=== PATIENT | female | born 1960 | race Caucasian/White ===

== ENCOUNTER → 2023-04-07 14:50 | Outpatient (REF) | payer BC, SELFPAY | LOC: HWRAD 14:50 | PROVIDERS: ATTENDING PHYSICIAN Internal Medicine | DX: I10 Essential (primary) hypertension (principal) | CPT/HCPCS: 76536 ==

== ENCOUNTER → 2024-04-02 06:03 | Outpatient (REF) | payer BC, SELFPAY ==
[2024-04-02 09:45] LABS: % Basophils 1.6 % (0-2); % Eosinophils 6.7 % (0-6); % Lymphocytes 22.5 % (20.5-51.1); % Monocytes 10.2 % (1.7-9.3); Absolute Basophils 0.1 10^3/uL (0-0.2); Absolute Eosinophils 0.3 10^3/uL (0-0.7); Absolute Lymphocytes 0.8 10^3/uL (1.2-3.4); Absolute Monocytes 0.4 10^3/uL (0.1-0.6); Absolute Neutrophils 2.2 10^3/uL (1.4-6.5); Hemoglobin 12.6 g/dL (12.0-16.0); Mean Corp Hgb Conc. 34.1 g/dL (33.0-37.0); Mean Corpuscular Volume 88.1 fL (81.0-99.0); Mean Platelet Volume 10.8 fL (7.4-10.4); Nucleated Red Blood Cells % 0 %; Platelet Count 239 10^3/uL (130-400); Red Cell Dist. Width 12.8 % (11.5-14.5); White Blood Cell Count 3.7 10^3/uL (4.8-10.8)
[2024-04-02 10:14] LABS: ALT (SGPT) 17 U/L (0-35); AST (SGOT) 26 U/L (14-36); Albumin 4.2 g/dl (3.5-5.0); Alkaline Phosphatase 61 U/L (38-126); Blood Urea Nitrogen 18 mg/dl (7-17); Calcium 9.1 mg/dl (8.4-10.2); Carbon Dioxide 28 mmol/L (22-30); Chloride 101 mmol/L (98-107); Glucose 91 mg/dl (70-99); HDL Cholesterol 89 mg/dl; LDL Cholesterol, Calculated 95 mg/dl; Potassium 3.5 mmol/L (3.5-5.1); Sodium 136 mmol/L (135-145); Total Bilirubin 0.9 mg/dl (0.2-1.3); Total Cholesterol 198 mg/dl (50-199); Total Protein 6.6 g/dl (6.3-8.2); Triglyceride 71 mg/dl (10-149); Very Low Density Lipoprotein 14 mg/dl (0-30); eGFR > 60.00
== END ==
LOC: HWLAB 06:03
PROVIDERS: ATTENDING PHYSICIAN Internal Medicine
DX: I10 Essential (primary) hypertension (principal)
CPT/HCPCS: 36415; 80053; 80061; 84443; 85025

== ENCOUNTER → 2024-04-30 06:15 | Outpatient (REF) | payer BC, SELFPAY ==
[2024-04-30 10:13] LABS: % Basophils 1.2 % (0-2); % Immature Granulocytes 0.2 % (0-0.5); % Lymphocytes 23.6 % (20.5-51.1); % Monocytes 9.9 % (1.7-9.3); % Neutrophils 59.1 % (42.2-75.2); Absolute Basophils 0.1 10^3/uL (0-0.2); Absolute Eosinophils 0.3 10^3/uL (0-0.7); Absolute Monocytes 0.4 10^3/uL (0.1-0.6); Absolute Neutrophils 2.6 10^3/uL (1.4-6.5); Hematocrit 35.9 % (37.0-47.0); Hemoglobin 12.3 g/dL (12.0-16.0); Mean Corp Hgb Conc. 34.3 g/dL (33.0-37.0); Mean Corpuscular Hgb 30.3 pg (27.0-31.0); Mean Corpuscular Volume 88.4 fL (81.0-99.0); Nucleated Red Blood Cells % 0 %; Platelet Count 239 10^3/uL (130-400); Red Blood Cell Count 4.06 10^6/uL (4.20-5.40); Red Cell Dist. Width 12.6 % (11.5-14.5); White Blood Cell Count 4.3 10^3/uL (4.8-10.8)
== END ==
LOC: HWLAB 06:15
PROVIDERS: ATTENDING PHYSICIAN Internal Medicine Hematology & Oncology; FAMILY PHYSICIAN Internal Medicine
DX: D72.819 Decreased white blood cell count, unspecified (principal)
CPT/HCPCS: 36415; 85025

== ENCOUNTER 2024-06-05 06:09 | Emergency (ER) | payer BC, SELFPAY ==
[2024-06-05 06:11] VITALS: BP 158/80
--- NOTE | 2024-06-05 06:23 | ED.GENMED ---
History of Present Illness
General
Chief Complaint: Cold/Flu/URI Symptoms
Source: patient
Exam Limitations: none
Time Seen by Provider: 06/05/24 06:15
History of Present Illness
History of Present Illness:
64yoF with a history of hypertension and exercise induced asthma presenting for evaluation of URI symptoms. Symptoms initially started last week with a scratchy throat. She is also experiencing nasal congestion, a productive cough, body aches, and
chills. She was seen at urgent care at symptoms onset and had negative strep testing. She was told it was postnasal drip and it was recommended that she take antihistamines. She reports that the cough seems to be worse since yesterday which
prompted her to come to the ED. She denies any fevers, vomiting, diarrhea, UTI symptoms, shortness of breath. Of note, patient's grandchildren were also sick last week. No recent travel. No tobacco use.
Past History
Past History
ED Past Medical History: Asthma (with exercise) and HTN
ED Past Surgical History: Cholecystectomy
Social History
Tobacco: Former smoker
Alcohol: Occasional
Personal:
Living: with family
Phy Exam
General Physical Exam
General Presentation: well appearing and no apparent distress
General age: appears stated age
General Skin: warm and dry
General Habitus: normal
General Mental: alert
ENT Exam
ENT Exam: TM's normal, pharynx normal, neck supple and normocephalic
Cardiovascular Exam
Cardiovascular Exam: regular rate/rhythm and no murmur
Pulmonary Exam
Pulmonary Exam: lungs clear, no respiratory distress, no rales, no crackles, no rhonchi and no wheezing
Neurological Exam
Neurological Exam: alert
[place] Coma Scale
Eye Opening: Spontaneous
Verbal Response: Oriented
Motor Response: Obeys Commands
GCS Total Score: 15
Skin Exam
Skin Exam: normal color and warm/dry
Psychiatric Exam
Psychiatric Exam: normal mood/affect
Course
Orders/Labs/Results
Orders:
Orders
06/05/24 06:23
CR Chest - 2 Views Urgent
Comment:
Reason For Exam: cough
06/05/24 06:27
COVID-19 Antigen Urgent
Source: Nasal Swab
Influenza A+B Rapid Molecular Urgent
MARIA VICTORIA Source: Nasal Swab
Specimen Description:
Respiratory Syncytial Virus Urgent
MARIA VICTORIA Source: Nasal Swab
Specimen Description:
Date Specimen was Collected: 06/05/24
Time Specimen was Collected: :25
Vital Signs
Initial and Last Documented VS:
Initial Vital Signs
Temp Pulse Resp BP Pulse Ox
98.5 F 70 18 158/80 97
06/05/24 06:11 06/05/24 06:11 06/05/24 06:11 06/05/24 06:11 06/05/24 06:11
Last Documented Vital Signs
Temp Pulse Resp BP Pulse Ox
100.3 F 71 16 138/70 94
06/05/24 07:32 06/05/24 07:32 06/05/24 07:32 06/05/24 07:00 06/05/24 07:32
MDM/Problems Addressed
Differential Diagnosis Includes:
64yoF here with URI symptoms x 1 week. C/o cough, congestion, body aches. No fevers. +Sick contacts. She is mildly hypertensive with otherwise stable vitals. She is well appearing in no distress. Exam is reassuring. Differential diagnosis includes
but is not limited to: viral illness, bronchitis, pneumonia
Initial ED plan: Check COVID/flu/RSV swabs and CXR.
*Critical Care Note
Total Time (30-74mins, 75-104mins- exclusive of procedures): Not Applicable
Update Note
Update Note:
Viral testing is negative. CXR is clear without infiltrates. No episodes of hypoxia during ED stay. No indication for hospitalization. Suspect bronchitis. She was started on a course of prednisone and azithromycin. Supportive care reviewed. Advised
f/u with PCP and ED return precautions discussed. Patient in agreement with plan and was discharged in stable condition.
ED Attending Note
-
Portions of this chart may have been created with voice recognition software.� Occasional wrong word or��sound alike� substitutions may have occurred due to the inherent limitations of voice recognition software.
Discharge Plan
Departure
Patient Disposition: Home (Routine Discharge)
Date of Disposition: 06/05/24
Time of Disposition: 07:39
Patient with high blood pressure during this ER visit?: Yes
Discharge Problem:
Acute bronchitis
Instructions: Acute Bronchitis, Adult (DC)
Prescriptions:
New
prednisone 20 mg tablet
40 mg PO DAILY 5 Days Qty: 10 0RF
azithromycin [Zithromax] 250 mg tablet
250 mg PO DAILY Qty: 6 0RF
Rx Instructions:
Take 500mg on day 1 followed by 250mg x 4 days.
No Action
aspirin 81 MG tablet,delayed release (DR/EC)
81 mg PO DAILY
hydrochlorothiazide 25 MG tablet
1 tab PO DAILY
glucosamine-chondroitin 1 EACH capsule
1 ea PO BID
cholestyramine (with sugar) 4 GM powder in packet
4 gm PO QPM
omega 3-jyk-fle-fish oil [Fish Oil] 1 EACH capsule
1 ea PO BID
calcium phosphate-vitamin D3 [Citracal-D3 Gummies] 1 EACH tablet,chewable
1 ea PO DAILY
Activity Restrictions/Additional Instructions:
Take prednisone and azithromycin as prescribed. Drink plenty of fluids. Use honey and humidifier for cough.
Please follow-up with your family doctor in the next week. Return to the ER with any new or worsening symptoms including shortness of breath.
Interventions
Interventions:
*Risk Screen - Suicide Last Done: 06/05/24 06:11
*General Assessment Last Done: 06/05/24 07:34
*Neglect/Abuse Screening Last Done: 06/05/24 06:11
*ED- Fall Risk Assessment Last Done: 06/05/24 06:32
*ED COVID-19 Vaccine History Last Done: 06/05/24 06:32
*Nursing Disposition Last Done: 06/05/24 07:45
ED- Pulmonary Assessment Last Done: 06/05/24 07:32
Discharge Date and Time
Discharge Date/Time: 06/05/24 07:45
Print Language: TRISTANIAN
[2024-06-05 06:28] VITALS: BP 150/82
[2024-06-05 07:00] VITALS: BP 138/70
[2024-06-05 07:05] LABS: COVID-19 Antigen Negative (Negative)
== END 2024-06-05 07:45 | disposition home or self-care (01) ==
LOC: EMR 06:09
PROVIDERS: Physician Assistant; EMERGENCY PHYSICIAN Emergency Medicine; FAMILY PHYSICIAN Internal Medicine
DX: J20.9 Acute bronchitis, unspecified (principal); Z11.52 Encounter for screening for COVID-19; I10 Essential (primary) hypertension; J45.998 Other asthma; Z87.891 Personal history of nicotine dependence; Z90.49 Acquired absence of other specified parts of digestive tract; Z88.8 Allergy status to other drugs, medicaments and biological substances
CPT/HCPCS: 99283; 71046; 87502; 87807; 87811